=== PATIENT | female | born 1955 | race Hispanic/Latino ===

== ENCOUNTER 2022-01-07 17:30 | Emergency (ER) | payer OTHER ==
[2022-01-07 18:43] LABS: ALT (SGPT) 6 U/L (8-55); AST (SGOT) 16 U/L (5-34); Albumin 3.2 g/dL (3.4-4.8); Alkaline Phosphatase 65 U/L (40-110); Anion Gap 11 mmol/L (10-20); BUN (Urea Nitrogen) 28 mg/dL (9.8-20.1); Bilirubin, Total 0.3 mg/dL (0.2-1.2); Calc. Creatinine Clearance 0 mL/min (70-130); Calcium 8.8 mg/dL (7.8-10.44); Carbon Dioxide 17 mmol/L (23-31); Chloride 114 mmol/L (98-107); Estimated GFR 30; Globulin 3.2 g/dL (2.4-3.5); Glucose 145 mg/dL (80-115); Potassium 5.2 mmol/L (3.5-5.1); Protein, Total 6.4 g/dL (5.8-8.1); Sodium 137 mmol/L (136-145)
[2022-01-07 18:46] LABS: #Eosinphils 0.2 10x3/uL (0.0-0.5); #Monocytes 0.5 10x3/uL (0.0-1.1); #Neutrophils 3.6 10x3/uL (1.5-8.4); %Basophils 0.6 % (0.0-2.0); %Eosinophils 3.2 % (0.0-6.0); %Monocytes 9.1 % (0.0-10.0); %Neutrophils 67.5 % (40.0-75.0); Hemoglobin 5.5 g/dL (12.0-15.5); Mean Corpuscular HGB CONC 27.6 g/dL (32.0-36.0); Mean Corpuscular Hemoglobin 18.8 pg (27.0-33.0); Mean Corpuscular Volume 68.2 fl (81.6-98.3); Mean Platelet Volume 10.7 fl (7.4-10.4); Platelet Count 101 10x3/uL (150-450); RBC Distribution Width 19.3 % (11.5-14.5); Red Blood Cell (RBC) Count 2.92 10x6/uL (3.90-5.03); White Blood Cell (WBC) Count 5.3 10x3/uL (3.5-10.5)
[2022-01-07 19:17] LABS: Anisocytosis MODERATE=16-30 cells (100X) (0-5/hpf); Hypochromia MODERATE=16-30 cells (100X) (0-5/hpf); Macrocytosis SLIGHT = 6-15 cells (100X) (0-5/hpf); Microcytosis MODERATE=15-30 cells (100X) (0-5/hpf)
[2022-01-07 19:18] LABS: Ovalocytes MODERATE= 6-15 cells (100X) (0-1/hpf); Polychromasia SLIGHT = 2-3 cells (100X) (0-2/hpf)
[2022-01-07 19:21] LABS: Platelet Morphology Comment Appears Decreased
[2022-01-07 19:22] LABS: Large Platelets MODERATE
== END 2022-01-08 02:10 | disposition home or self-care (01) ==
LOC: CSHERS 17:30
DX: D64.9 Anemia, unspecified (principal); E11.9 Type 2 diabetes mellitus without complications; I10 Essential (primary) hypertension; Z79.899 Other long term (current) drug therapy; Z79.84 Long term (current) use of oral hypoglycemic drugs
CPT/HCPCS: 36415; 36430; 80053; 82274; 85025; 86850; 86900; 86901; 99284; P9016